=== PATIENT | female | born 2000 | race Two or more races ===

== ENCOUNTER 2021-08-16 23:16 | Emergency (ER) | payer SELFPAY ==
[2021-08-16] MEDS: Sodium Chloride 0.9% 1,000 ML IV ONE (23:33)
[2021-08-16] MEDS: Ondansetron 4 MG/2 ML SDV IVPUSH ONE (23:34)
[2021-08-16] MEDS: Ketorolac 30 MG/ML SDV IVPUSH ONE (23:34)
[2021-08-17 00:07] LABS: BLOOD UREA NITROGEN,BUN 13 mg/dL (7.0-18.0); CARBON DIOXIDE,CO2 22.5 mmol/L (21.0-32.0); CHLORIDE,CL 104 mmol/L (98-107); GLUCOSE RANDOM 92 mg/dL (74-106); LIPASE 38 U/L (73-393); POTASSIUM,K 3.8 mmol/L (3.5-5.1); SODIUM,NA 140 mmol/L (136-145)
[2021-08-17] MEDS: Iopamidol 755 MG/ML 500 ML Multipack Bottle IVPUSH STA (01:08)
== END 2021-08-17 01:41 | disposition home or self-care (01) ==
LOC: MW.ED 23:16
DX: K59.00 Constipation, unspecified (principal)
CPT/HCPCS: 36415; 74177; 80053; 83690; 83735; 84703; 85025; 96374; 96375; 99284; J1885; J2405; J7030; Q9967; 99283